=== PATIENT | female | born 1945 | race Caucasian/White ===

== ENCOUNTER → 2019-11-17 | Day surgery (SDC) | payer MEDICARE, OTHER ==
[~2019-11-17] VITALS: Ht 162.6 cm; Wt 100.5 kg
[~2019-11-17] MED LIST: AMLO10TA7 PO; ATOR10TA84 PO; CYCLOPENTOLATE HCL 1% 2 ML OPHTHALMIC SOLUTION ONE; DICLOFENAC SODIUM 0.1% 2.5 ML OPHTHALMIC SOLUTION ONE; EPINEPHrine 1:1,000 [1 MG/ML] AMP OD ONE; FentaNYL CITRATE-PF 100 MCG/2 ML VIAL IVP ONE; HYALURONATE SODIUM 12 MG/ML 0.8 ML SYRINGE IO ONE; KETOROLAC TROMETHAMINE 0.5% 5 ML OPHTHALMIC SOLUTION ONE; LEVO137T24 PO; LIDOCAINE/PF 1% 2 ML VIAL OD ONE; METF-961 PO; MIDAZOLAM HCL 2 MG/2 ML VIAL IVP ONE; MOXIFLOXACIN HCL 0.5% 3 ML OPHTHALMIC SOLUTION ONE; NEOMYCIN/POLYMYXIN B/DEXAMETH 3.5 GM OPHTHALMIC OINTMENT OD ONE; PHENYLEPHRINE HCL 2.5% 2 ML OPHTHALMIC SOLUTION ONE; POVIDONE-IODINE 10% 15 ML SOLUTION UD TP ONE; PrednisoLONE ACETATE 1% 5 ML OPHTHALMIC SUSPENSION OD ONE; RINGERS SOLUTION,LACTATED 500 ML IV ONE; TETRACAINE HCL/PF 0.5% 4 ML OPHTHALMIC SOLUTION ONE; TETRACAINE HCL/PF 0.5% 4 ML OPHTHALMIC SOLUTION OS ONE; TRAM50TA4 PO; TROPICAMIDE 1% 2 ML OPHTHALMIC SOLUTION ONE
[2019-11-17] MEDS: KETOROLAC TROMETHAMINE 0.5% 5 ML OPHTHALMIC SOLUTION OS SCH ×3 (05:30→05:45)
[2019-11-17] MEDS: MOXIFLOXACIN HCL 0.5% 3 ML OPHTHALMIC SOLUTION OS SCH ×3 (05:30→05:45)
[2019-11-17] MEDS: CYCLOPENTOLATE HCL 1% 2 ML OPHTHALMIC SOLUTION OS SCH ×3 (05:30→05:45)
[2019-11-17] MEDS: TROPICAMIDE 1% 2 ML OPHTHALMIC SOLUTION OS SCH ×3 (05:31→05:45)
[2019-11-17] MEDS: PHENYLEPHRINE HCL 2.5% 2 ML OPHTHALMIC SOLUTION OS SCH ×3 (05:31→05:45)
[2019-11-17 05:37] LABS: GLUCOMETER DEV NAME(LOC) SDS.; GLUCOSE,POINT OF CARE 118 MG/DL (70-110)
== END | disposition home or self-care (01) ==
LOC: SURGERY 05:04
PROVIDERS: ATTEND Ophthalmology
DX: H25.12 Age-related nuclear cataract, left eye (principal); F17.210 Nicotine dependence, cigarettes, uncomplicated; E78.00 Pure hypercholesterolemia, unspecified; M19.90 Unspecified osteoarthritis, unspecified site; I10 Essential (primary) hypertension; E66.9 Obesity, unspecified; Z11.59 Encounter for screening for other viral diseases
CPT/HCPCS: 66984; 82962; 87635; J0171; J2250; J3010; J3490 ×2; J7120; V2632

== ENCOUNTER 2019-12-29 04:50 | Day surgery (SDC) | payer MEDICARE, OTHER ==
[~2019-12-29] VITALS: Ht 160 cm; Wt 100.0 kg
[~2019-12-29 04:50] MED LIST changes: +AMLO-258 PO; -AMLO10TA7 PO; -DICLOFENAC SODIUM 0.1% 2.5 ML OPHTHALMIC SOLUTION ONE; -EPINEPHrine 1:1,000 [1 MG/ML] AMP OD ONE; -FentaNYL CITRATE-PF 100 MCG/2 ML VIAL IVP ONE; -HYALURONATE SODIUM 12 MG/ML 0.8 ML SYRINGE IO ONE; -LIDOCAINE/PF 1% 2 ML VIAL OD ONE; -MIDAZOLAM HCL 2 MG/2 ML VIAL IVP ONE; -NEOMYCIN/POLYMYXIN B/DEXAMETH 3.5 GM OPHTHALMIC OINTMENT OD ONE; -POVIDONE-IODINE 10% 15 ML SOLUTION UD TP ONE; -PrednisoLONE ACETATE 1% 5 ML OPHTHALMIC SUSPENSION OD ONE; -TETRACAINE HCL/PF 0.5% 4 ML OPHTHALMIC SOLUTION OS ONE
[2019-12-29] MEDS ORDERED: HYALURONATE SODIUM 10 MG/ML 0.85 ML SYRINGE IO ONE (04:51)
[2019-12-29] MEDS ORDERED: RINGERS SOLUTION,LACTATED 500 ML IV ONE (05:00)
[2019-12-29] MEDS: MOXIFLOXACIN HCL 0.5% 3 ML OPHTHALMIC SOLUTION OD SCH ×3 (05:19→05:36)
[2019-12-29] MEDS: KETOROLAC TROMETHAMINE 0.5% 5 ML OPHTHALMIC SOLUTION OD SCH ×3 (05:19→05:36)
[2019-12-29] MEDS: PHENYLEPHRINE HCL 2.5% 2 ML OPHTHALMIC SOLUTION OD SCH ×3 (05:20→05:35)
[2019-12-29] MEDS: TROPICAMIDE 1% 2 ML OPHTHALMIC SOLUTION OD SCH ×3 (05:20→05:36)
[2019-12-29] MEDS: CYCLOPENTOLATE HCL 1% 2 ML OPHTHALMIC SOLUTION OD SCH ×3 (05:20→05:36)
[2019-12-29] MEDS ORDERED: EPINEPHrine 1:1,000 [1 MG/ML] AMP ONE (05:26)
[2019-12-29] MEDS ORDERED: LIDOCAINE/PF 1% 2 ML VIAL ONE (05:26)
[2019-12-29] MEDS ORDERED: POVIDONE-IODINE 10% 15 ML SOLUTION UD ONE (05:27)
[2019-12-29] MEDS ORDERED: BALANCED SALT 15 ML OPHTHALMIC IRRIG.SOLN ONE (05:27)
[2019-12-29] MEDS ORDERED: NEOMYCIN/POLYMYXIN B/DEXAMETH 3.5 GM OPHTHALMIC OINTMENT ONE (05:27)
[2019-12-29] MEDS ORDERED: PrednisoLONE ACETATE 1% 5 ML OPHTHALMIC SUSPENSION ONE (05:29)
[2019-12-29] MEDS ORDERED: TETRACAINE HCL/PF 0.5% 4 ML OPHTHALMIC SOLUTION OD ONE (06:00)
[2019-12-29] MEDS ORDERED: MIDAZOLAM HCL 2 MG/2 ML VIAL IVP ONE (12:00)
[2019-12-29] MEDS ORDERED: FentaNYL CITRATE-PF 100 MCG/2 ML VIAL IVP ONE (12:00)
== END 2019-12-29 08:10 | disposition home or self-care (01) ==
LOC: SURGERY 04:50
PROVIDERS: ATTEND Ophthalmology
DX: E11.36 Type 2 diabetes mellitus with diabetic cataract (principal); H25.11 Age-related nuclear cataract, right eye; E03.9 Hypothyroidism, unspecified; E78.00 Pure hypercholesterolemia, unspecified; F17.210 Nicotine dependence, cigarettes, uncomplicated; I10 Essential (primary) hypertension; Z11.59 Encounter for screening for other viral diseases; Z98.890 Other specified postprocedural states; Z79.899 Other long term (current) drug therapy
CPT/HCPCS: 66984; 87635; 93005; J0171; J2250; J3010; J3490; J7120; V2632